=== PATIENT | female | born 1950 | race Caucasian/White ===

== ENCOUNTER 2020-07-18 17:11 | Emergency (ER) | payer BC, OTHER ==
[~2020-07-18] VITALS: Ht 167.6 cm; Wt 100.6 kg
[~2020-07-18 17:11] MED LIST: CHOL100012 PO; HYDR2TAB29 PO; LEVO137T25 PO; PILO5TAB PO
--- NOTE | 2020-07-18 18:06 | NUR ---
PT BIB SELF VIA POV. PT STATES RENAL DIALYSIS CATH ISNT WORKING (LOCATED ON RT CHEST). ALSO STATES SHE HAS HAD NO DIALYSIS SINCE LAST WEEK. PT STATES THAT SHE WAS GOING TO GO INTO SURGERY FOR THIS BUT THE DIALYSIS CENTER SAID IT WOULD HAVE TO BE SCHEDULED AT A LATER TIME. PT RESTING [facility], MONITORING IN PLACE, WCTM. PT TEARFUL AT THIS TIME STATING "I SHOULDN'T HAVE TO WAIT [address].", PT EDUCATED ON ED WAIT TIMES.
[2020-07-18 18:44] VITALS: BP 129/80
[2020-07-18 18:53] LABS: MEAN PLATELET VOLUME 8.7 fL (7.4-10.4); PLATELET COUNT 262 x10^3/uL (130-400); RED BLOOD COUNT 3.61 x10^6/uL (3.82-5.3); RED CELL DISTRIBUTION WIDTH 17.6 % (9.6-15.2)
[2020-07-18 19:05] LABS: ALBUMIN 3.4 g/dL (3.4-5.0); ANION GAP 9 mmol/L (5-15); CALCIUM 8.9 mg/dL (8.5-10.1); CHLORIDE 109 mmol/L (98-107)
[2020-07-18 19:50] LABS: MD YES
[2020-07-18 19:59] LABS: BAND#(MANUAL) 0.61 x10^3/uL; BANDS%(MANUAL) 5 % (0-7); BASOS#(MANUAL) 0.12 x10^3/uL (0-0.1); BASOS% (MANUAL) 1 % (0-1); LYMPH#(MANUAL) 0.98 x10^3/uL (1-3.4); LYMPHS% (MANUAL) 8 % (22-44); METAMYELOCYTES# (MANUAL) 0.12 x10^3/uL (0-0); METAMYELOCYTES% (MANUAL) 1 % (0-1); MONOS#(MANUAL) 0.49 x10^3/uL (0.3-2.7); MONOS% (MANUAL) 4 % (2-9); MYELOCYTES# (MANUAL) 0.12 x10^3/uL (0-0); MYELOCYTES% (MANUAL) 1 % (0-0); SEG#(MANUAL) 9.76 x10^3/uL (1.8-6.8); SEGS% (MANUAL) 80 % (42-75)
[2020-07-18 20:00] LABS: <PLATELET ESTIMATE> ADEQUATE; <PLT MORPHOLOGY> NORMAL PLT MORPH; <RBC MORPHOLOGY> NORMAL
== END 2020-07-18 19:33 | disposition home or self-care (01) ==
LOC: ED 19:26
DX: N18.9 Chronic kidney disease, unspecified (principal); Z99.2 Dependence on renal dialysis; R94.31 Abnormal electrocardiogram [ECG] [EKG]; Z87.891 Personal history of nicotine dependence
CPT/HCPCS: 36415; 71045; 80048; 82040; 85025; 93005; 99285